=== PATIENT | female | born 1985 | race Caucasian/White ===

== ENCOUNTER 2018-02-25 13:35 | Emergency (ER) | payer MEDICARE, OTHER ==
[~2018-02-25] VITALS: Ht 162.6 cm; Wt 90.7 kg
[2018-02-25] MEDS ORDERED: Vistaril50 MG PO (13:54)
[2018-02-25] MEDS ORDERED: Zofran Odt4 MG SL (13:54)
[2018-02-25] MEDS ORDERED: LITH300ER PO (13:54)
== END 2018-02-25 14:09 | disposition home or self-care (01) ==
LOC: ER 13:35
DX: Z76.0 Encounter for issue of repeat prescription (principal); F32.9 Major depressive disorder, single episode, unspecified; D41.9 Neoplasm of uncertain behavior of unspecified urinary organ; F17.200 Nicotine dependence, unspecified, uncomplicated
CPT/HCPCS: 99283

== ENCOUNTER 2018-04-08 12:46 | Emergency (ER) | payer MEDICARE, OTHER ==
[~2018-04-08] VITALS: Ht 162.6 cm; Wt 90.7 kg
[~2018-04-08 12:46] MED LIST: LITH300ER PO; Vistaril50 MG PO; Zofran Odt4 MG SL
[2018-04-08] MEDS ORDERED: Zoloft100 MG PO (13:04)
[2018-04-08] MEDS ORDERED: HYDHCL25 PO (13:04)
[2018-04-08] MEDS ORDERED: Zofran Odt4 MG SL (13:04)
[2018-04-08] MEDS ORDERED: DEXL60CA3 PO ×2 (13:04→14:14)
[2018-04-08] MEDS ORDERED: LITH300ER PO (13:04)
[2018-04-08] MEDS ORDERED: HYDPAM25 PO (14:15)
[2018-04-08] MEDS ORDERED: LITH300C PO (14:15)
[2018-04-08] MEDS ORDERED: SERT100 PO (14:15)
== END 2018-04-08 13:19 | disposition home or self-care (01) ==
LOC: ER 12:46
DX: Z76.0 Encounter for issue of repeat prescription (principal); F41.9 Anxiety disorder, unspecified; F31.9 Bipolar disorder, unspecified; F17.200 Nicotine dependence, unspecified, uncomplicated; Z79.899 Other long term (current) drug therapy
CPT/HCPCS: 99281